=== PATIENT | female | born 1985 | race Caucasian/White ===

== ENCOUNTER 2017-01-12 18:44 | Emergency (ER) | payer OTHER ==
[~2017-01-12 18:44] MED LIST: BUSPIRONE HCL5 MG PO; FLINTSTONES CO1 EAC1 PO; FLINTSTONES1 EAC1 PO; HYDROXYZINE HCL10 MG PO; LEVOFLOXACIN500 MG PO; MAGNESIUM OXID400 MG PO; PANTOPRAZOLE SO40 MG PO; PERCOCET 10-321 EACH PO; PHENERGAN25 M1 PO; PRENATAL TABLE1 EAC1 PO; SUCRALFATE1 GM/10 ML PO
[2017-01-12 19:28] LABS: BASO % 0.6 % (0.1-1.2); EOS # 0.2 10_X3_uL (0.0-0.4); EOS % 2.1 % (0.7-5.8); GRAN # 3.9 10_X3_uL (1.6-6.1); GRAN % 53.5 % (34.0-71.1); HEMATOCRIT 33.5 % (34-45); HEMOGLOBIN 11.7 g/dL (11.2-15.7); LYMPH # 2.7 10_X3_uL (1.2-3.7); LYMPH % 37.4 % (19.3-51.7); MEAN CORPUSCULAR HEMOGLOBIN 29.8 pg (27.0-33.0); MEAN CORPUSCULAR HGB CONC 34.9 g/dL (32.0-36.0); MEAN CORPUSCULAR VOLUME 85.2 fL (79-95); MEAN PLATELET VOLUME 10.6 fl (7.5-11.5); MONO # 0.5 10_X3_uL (0.2-0.9); MONO % 6.4 % (4.7-12.5); PLATELET COUNT 257 x10_3/uL (182-369); RED BLOOD COUNT 3.93 x10_6/uL (3.9-5.2); RED CELL DISTRIBUTION WIDTH 11.9 % (11.7-14.4); WHITE BLOOD COUNT 7.2 x10_3/uL (4.0-10.0)
[2017-01-12 19:45] LABS: ALBUMIN 4.3 gm/dL (3.4-5.0); ALKALINE PHOSPHATASE 78 U/L (50-136); ALT/SGPT 10 U/L (3.5-33.9); AST/SGOT 15 U/L (7.04-26.96); BILIRUBIN,TOTAL 0.27 mg/dL (0.0-1.0); BLOOD UREA NITROGEN 9 mg/dL (7-18); CALCIUM 8.9 mg/dL (8.7-10.7); CARBON DIOXIDE 23 mmol/L (21-32); CREATINE KINASE 73 U/L (21-215); CREATININE 0.7 mg/dL (0.6-1.3); GLUCOSE,RANDOM 88 mg/dL (70-99); POTASSIUM 3.3 mmol/L (3.5-5.1); SODIUM 140 mmol/L (136-145); TOTAL PROTEIN 7.2 gm/dL (6.4-8.2)
== END 2017-01-12 22:36 | disposition home or self-care (01) ==
LOC: ER 18:44
PROVIDERS: Emergency Medicine
DX: R19.7 Diarrhea, unspecified (principal); E87.6 Hypokalemia; R10.9 Unspecified abdominal pain; R06.02 Shortness of breath; Z98.84 Bariatric surgery status; Z79.899 Other long term (current) drug therapy
CPT/HCPCS: 36415; 71020; 80053; 82550; 82553; 83880; 84703; 85025; 93005; 94664; 96360; 96361; 99070; 99284-25

== ENCOUNTER 2017-03-01 18:38 | Emergency (ER) | payer OTHER | END 2017-03-01 21:20 | disposition home or self-care (01) | LOC: ER 18:38 | DX: R51 Headache (principal); R42 Dizziness and giddiness; Z79.899 Other long term (current) drug therapy ==